=== PATIENT | female | born 1980 | race Caucasian/White ===

== ENCOUNTER → 2017-10-21 | Outpatient (REF) | payer BC ==
[~2017-10-21] MED LIST: ACET50TA PO; COLA100C5 PO; FISH500C PO; IBUP60TA PO; PREN1TAB11 PO; WELL75TA PO
[2017-10-21 15:48] LABS: PERCENT SATURATION 14.2 % (13.2-45.0)
== END ==
LOC: M LAB REF 14:41
PROVIDERS: ATTEND Internal Medicine
DX: D64.9 Anemia, unspecified (principal)

== ENCOUNTER → 2018-10-30 | Outpatient (REF) | payer BC ==
[~2018-10-30] MED LIST changes: -ACET50TA PO; +MAPA500T2 PO
[2018-10-30 17:12] LABS: PERCENT SATURATION 18.3 % (13.2-45.0)
== END ==
LOC: M LAB REF 15:58
PROVIDERS: ATTEND Internal Medicine
DX: D64.9 Anemia, unspecified (principal)

== ENCOUNTER → 2020-11-16 | Outpatient (REF) | payer OTHER ==
[~2020-11-16] MED LIST changes: +IBUP600T42 PO; -IBUP60TA PO
== END ==
LOC: M LAB REF 12:18
PROVIDERS: ATTEND Internal Medicine
DX: D64.9 Anemia, unspecified (principal)

== ENCOUNTER → 2021-11-20 | Outpatient (REF) | payer OTHER ==
[2021-11-20 13:04] LABS: PERCENT SATURATION 23.7 % (13.2-45.0)
== END ==
LOC: M LAB REF 12:14
PROVIDERS: ATTEND Internal Medicine
DX: D64.9 Anemia, unspecified (principal)

== ENCOUNTER → 2022-03-20 | Outpatient (REF) | payer OTHER ==
[~2022-03-20] MED LIST changes: +BUPR1TAB52; +CEPH500C PO; +ONDA4TAB6 PO; +TRI-TAB2
== END ==
LOC: M LAB REF 21:13
PROVIDERS: ATTEND Physician Assistant
DX: R50.9 Fever, unspecified (principal); R53.83 Other fatigue

== ENCOUNTER 2022-03-21 17:49 | Emergency (ER) | payer OTHER ==
[~2022-03-21] VITALS: Ht 162.6 cm; Wt 47.7 kg
[2022-03-21 17:49] VITALS: BP 120/70
[~2022-03-21 17:49] MED LIST changes: -BUPR1TAB52; -CEPH500C PO; -ONDA4TAB6 PO; -TRI-TAB2
[2022-03-21] MEDS ORDERED: TRI-TAB2 (18:03)
[2022-03-21] MEDS ORDERED: BUPR1TAB52 (18:03)
[2022-03-21] MEDS ORDERED: NS 1,000 ML IV ONE (18:30)
[2022-03-21] MEDS ORDERED: ACETAMINOPHEN 500 MG TAB PO ONE (18:30)
[2022-03-21] MEDS ORDERED: ONDANSETRON 4MG/2ML VIAL IV ONE (18:30)
[2022-03-21 19:31] LABS: HEMATOCRIT 39.8 % (36.0-47.0); HEMOGLOBIN 13.4 g/dl (12.0-15.5); MEAN CORPUSCULAR HEMOGLOBIN 30.1 pg (27.0-33.0); MEAN CORPUSCULAR HGB CONC 33.7 g/dl (32.0-36.5); MEAN CORPUSCULAR VOLUME 89.4 fl (80.0-96.0); RED BLOOD COUNT 4.45 10^6/uL (4.00-5.40); WHITE BLOOD COUNT 2.8 10^3/uL (4.0-10.0)
[2022-03-21 19:45] LABS: INR 1.09; PROTHROMBIN TIME 14.5 SECONDS (12.7-14.5)
[2022-03-21 19:46] LABS: PARTIAL THROMBOPLASTIN TIME 37.5 SECONDS (25.9-37.0)
[2022-03-21 19:48] LABS: ALBUMIN 2.8 GM/DL (3.2-5.2); ALT/SGPT 21 U/L (12-78); BILIRUBIN,TOTAL 0.8 MG/DL (0.2-1.0); BLOOD UREA NITROGEN 18 MG/DL (7-18); CALCIUM LEVEL 8.4 MG/DL (8.5-10.1); CARBON DIOXIDE LEVEL 25 MEQ/L (21-32); CHLORIDE LEVEL 105 MEQ/L (98-107); CREATININE FOR GFR 1.35 MG/DL (0.55-1.30); GLOMERULAR FILTRATION RATE 46.2 (>58); GLUCOSE, FASTING 118 MG/DL (70-100); POTASSIUM SERUM 4.2 MEQ/L (3.5-5.1); SODIUM LEVEL 138 MEQ/L (136-145); TOTAL PROTEIN 6.8 GM/DL (6.4-8.2)
[2022-03-21 20:05] LABS: D-DIMER QUANT > 4000 ng/ml (<500)
[2022-03-21] MEDS ORDERED: ISOVUE-370 76% 100ML VIAL As Ordered ONE (20:11)
[2022-03-21 20:14] LABS: PLATELET COUNT, AUTOMATED 59 10^3/uL (150-450)
[2022-03-21 20:19] LABS: ATYPICAL LYMPH 9 % (0-5); BASOPHILS 1 % (0-1); LYMPHOCYTES 5 % (16-44); METAMYELOCYTES 1 % (0-0); MONOCYTES 2 % (0-5); NEUTROPHILS 51 % (28-66); PLATELET ESTIMATE DECREASED (NORMAL)
[2022-03-21 21:27] LABS: MONO SCRN NEGATIVE (NEGATIVE)
[2022-03-21 22:11] LABS: HEPATITIS C VIRUS ABY INDEX 0.1 INDEX (<0.8)
[2022-03-21 22:12] LABS: HEPATITIS B CORE ANTIBODY IGM NEGATIVE (NEGATIVE)
[2022-03-21 22:34] LABS: LDH LACTATE DEHYDROGENASE 302 U/L (84-246)
[2022-03-21 22:49] LABS: HEPATITIS B SURFACE ANTIGEN NEGATIVE (NEGATIVE)
[2022-03-21] MEDS ORDERED: CEPH500C PO (22:55)
[2022-03-21] MEDS ORDERED: CEPHALEXIN 500 MG CAP PO ONE (22:55)
[2022-03-21] MEDS ORDERED: ONDA4TAB6 PO (22:56)
[2022-03-21 23:18] LABS: HIV 1&2 SCREEN CENTAUR NEGATIVE (NEGATIVE)
[2022-03-23 20:07] LABS: ANTINUCLEAR ANTIBODIES DIRECT Negative (Negative)
== END 2022-03-21 23:07 | disposition home or self-care (01) ==
LOC: M ED 17:49
DX: N39.0 Urinary tract infection, site not specified (principal); B34.8 Other viral infections of unspecified site; F33.9 Major depressive disorder, recurrent, unspecified; Z79.899 Other long term (current) drug therapy; Z79.3 Long term (current) use of hormonal contraceptives
CPT/HCPCS: 71046; 71275; 80053; 80503; 81001; 83605; 83615; 85025; 85049; 85055; 85379; 85610; 85730; 86038; 86308; 86618; 86705; 86709; 86803; 87040; 87088; 87186; 87340; 87389; 87486; 87581; 87633; 87798; 93005; 96361; 96374; 99284; J2405; Q9967

== ENCOUNTER → 2022-04-12 | Outpatient (REF) | payer OTHER ==
[~2022-04-12] MED LIST changes: +BUPR1TAB52; +CEPH500C PO; +ONDA4TAB6 PO; +TRI-TAB2
== END ==
LOC: M LAB REF 16:23
PROVIDERS: ATTEND Internal Medicine
DX: R50.9 Fever, unspecified (principal); B34.9 Viral infection, unspecified; R53.83 Other fatigue

== ENCOUNTER → 2022-08-25 | Outpatient (CLI) | payer OTHER | LOC: M LABSMTC 10:26 | PROVIDERS: ATTEND Anesthesiology | DX: Z01.818 Encounter for other preprocedural examination (principal); Z11.52 Encounter for screening for COVID-19 ==

== ENCOUNTER 2022-08-29 08:20 | Day surgery (SDC) | payer OTHER ==
[~2022-08-29] VITALS: Ht 162.6 cm; Wt 56.2 kg
[~2022-08-29 08:20] MED LIST changes: +NS 1,000 ML IV ONE
[2022-08-29] MEDS ORDERED: LIDOCAINE 2% 100MG/5ML SDV (FOR ANES.) As Ordered ONE (09:28)
[2022-08-29] MEDS ORDERED: propofoL 200 MG/20 ML VIAL As Ordered ONE (09:28)
[2022-08-29 10:03] VITALS: BP 98/56
== END 2022-08-29 10:19 | disposition home or self-care (01) ==
LOC: M OPP 08:20
PROVIDERS: ATTEND Surgery
DX: Z12.11 Encounter for screening for malignant neoplasm of colon (principal); Z80.0 Family history of malignant neoplasm of digestive organs; Z79.3 Long term (current) use of hormonal contraceptives; Z79.899 Other long term (current) drug therapy; Z88.1 Allergy status to other antibiotic agents; F32.9 Major depressive disorder, single episode, unspecified; F41.9 Anxiety disorder, unspecified

== ENCOUNTER → 2023-06-11 | Outpatient (CLI) | payer OTHER ==
[~2023-06-11] MED LIST changes: -NS 1,000 ML IV ONE
[2023-06-11 15:54] LABS: HEMATOCRIT 41.9 % (36.0-47.0); HEMOGLOBIN 13.5 g/dl (12.0-15.5); MEAN CORPUSCULAR HEMOGLOBIN 29.3 pg (27.0-33.0); MEAN CORPUSCULAR HGB CONC 32.2 g/dl (32.0-36.5); MEAN CORPUSCULAR VOLUME 91.1 fl (80.0-96.0); PLATELET COUNT, AUTOMATED 188 10^3/uL (150-450); WHITE BLOOD COUNT 7.4 10^3/uL (4.0-10.0)
[2023-06-11 16:28] LABS: ALBUMIN 3.4 G/DL (3.2-5.2); ALKALINE PHOSPHATASE 36 U/L (46-116); ALT/SGPT 13 U/L (7.0-40); AST/SGOT 9 U/L (<34); BILIRUBIN,TOTAL 0.5 MG/DL (0.3-1.2); BLOOD UREA NITROGEN 14 MG/DL (9-23); CALCIUM LEVEL 9.1 MG/DL (8.5-10.1); CARBON DIOXIDE LEVEL 28 MMOL/L (20-31); CHLORIDE LEVEL 105 MMOL/L (98-107); CREATININE FOR GFR 1.05 MG/DL (0.55-1.30); GLOMERULAR FILTRATION RATE > 60.0 (>58); GLUCOSE, FASTING 84 MG/DL (60-100); POTASSIUM SERUM 4.2 MMOL/L (3.5-5.1); SODIUM LEVEL 141 MMOL/L (136-145); TOTAL PROTEIN 6.9 G/DL (5.7-8.2)
[2023-06-11 16:29] LABS: THYROID STIMULATING HORMONE 1.341 uIU/ML (0.55-4.78)
[2023-06-11 16:30] LABS: FREE T4 0.94 NG/DL (0.89-1.76)
[2023-06-13 12:09] LABS: ANTINUCLEAR ANTIBODIES DIRECT Negative (Negative)
== END ==
LOC: M LAB 15:25
PROVIDERS: ATTEND Physician Assistant
DX: L65.0 Telogen effluvium (principal)

== ENCOUNTER → 2023-06-11 | Outpatient (REF) | payer OTHER | LOC: CANPREREF → M SFHCDERM 15:44 | PROVIDERS: ATTEND Physician Assistant | DX: Z53.9 Procedure and treatment not carried out, unspecified reason (principal) ==

== ENCOUNTER → 2023-08-06 | Outpatient (CLI) | payer OTHER, SELFPAY | LOC: M LAB 09:48 | PROVIDERS: ATTEND Physician Assistant | DX: L65.0 Telogen effluvium (principal) ==

== ENCOUNTER → 2024-01-02 | Outpatient (REF) | payer OTHER ==
[2024-01-02 17:57] LABS: PERCENT SATURATION 20.4 % (13.2-45.0)
[2024-01-02 18:01] LABS: FERRITIN 13.2 NG/ML (7.3-270.7)
== END ==
LOC: M LAB REF 17:02
PROVIDERS: ATTEND Internal Medicine
DX: L65.9 Nonscarring hair loss, unspecified (principal); D50.9 Iron deficiency anemia, unspecified

== ENCOUNTER → 2024-09-09 | Outpatient (REF) | payer OTHER ==
[~2024-09-09] MED LIST changes: +ONDA-282 PO; -ONDA4TAB6 PO
[2024-09-09 17:29] LABS: HEMATOCRIT 37.4 % (36.0-47.0); HEMOGLOBIN 12.4 g/dl (12.0-15.5); MEAN CORPUSCULAR HGB CONC 33.2 g/dl (32.0-36.5); MEAN CORPUSCULAR VOLUME 90.6 fl (80.0-96.0); PLATELET COUNT, AUTOMATED 276 10^3/uL (150-450); RED BLOOD COUNT 4.13 10^6/uL (4.00-5.40)
[2024-09-09 17:42] LABS: HEPATITIS B SURFACE ANTIGEN NEGATIVE (NEGATIVE)
[2024-09-09 17:54] LABS: HIV 1&2 SCREEN NEGATIVE (NEGATIVE)
[2024-09-09 18:03] LABS: HEPATITIS C VIRUS ABY INDEX < 0.02 INDEX (<0.8)
[2024-09-09 18:06] LABS: HCG, SERUM QUANTITATIVE 23166.6 MIU/ML (<4.2)
[2024-09-10 07:43] LABS: WHITE BLOOD COUNT 7.5 10^3/uL (4.0-10.0)
== END ==
LOC: M LAB REF 16:23
PROVIDERS: ATTEND Obstetrics & Gynecology
DX: O36.80X0 Pregnancy with inconclusive fetal viability, not applicable or unspecified (principal); Z32.01 Encounter for pregnancy test, result positive; Z3A.00 Weeks of gestation of pregnancy not specified

== ENCOUNTER → 2024-11-29 | Outpatient (CLI) | payer OTHER ==
[2024-11-29 15:38] LABS: HEMATOCRIT 33.2 % (36.0-47.0); HEMOGLOBIN 10.7 g/dl (12.0-15.5); MEAN CORPUSCULAR HEMOGLOBIN 29.3 pg (27.0-33.0); MEAN CORPUSCULAR HGB CONC 32.2 g/dl (32.0-36.5); PLATELET COUNT, AUTOMATED 258 10^3/uL (150-450); RED BLOOD COUNT 3.65 10^6/uL (4.00-5.40); WHITE BLOOD COUNT 7.4 10^3/uL (4.0-10.0)
== END ==
LOC: M WUC 09:46
PROVIDERS: ATTEND Obstetrics & Gynecology
DX: Z34.82 Encounter for supervision of other normal pregnancy, second trimester (principal)

== ENCOUNTER → 2024-12-22 | Outpatient (REF) | payer OTHER ==
[2024-12-22 16:58] LABS: BASO % 0.2 % (0.0-1.0); EOS # 0.1 10^3/uL (0.0-0.5); EOS % 0.7 % (0.0-3.0); HEMATOCRIT 32.8 % (36.0-47.0); HEMOGLOBIN 10.8 g/dl (12.0-15.5); LYMPH # 1.5 10^3/uL (1.5-5.0); LYMPH % 15.2 % (24.0-44.0); MEAN CORPUSCULAR HEMOGLOBIN 29.6 pg (27.0-33.0); MEAN CORPUSCULAR HGB CONC 32.9 g/dl (32.0-36.5); MEAN CORPUSCULAR VOLUME 89.9 fl (80.0-96.0); MONO # 0.7 10^3/uL (0.0-0.8); MONO % 7.3 % (2.0-8.0); NEUTROPHILS # 7.3 10^3/uL (1.5-8.5); NEUTROPHILS % 75.9 % (36.0-66.0); PLATELET COUNT, AUTOMATED 288 10^3/uL (150-450); RED BLOOD COUNT 3.65 10^6/uL (4.00-5.40)
[2024-12-22 17:16] LABS: TOTAL PROTEIN,RANDOM URINE 8.8 MG/DL (0.0-14.0)
[2024-12-22 17:17] LABS: URIC ACID 4.2 MG/DL (3.1-7.8)
[2024-12-22 17:20] LABS: LDH LACTATE DEHYDROGENASE 178 U/L (120-246)
[2024-12-22 17:21] LABS: ALT/SGPT 19 U/L (7.0-40); AST/SGOT 17 U/L (<34); BILIRUBIN,TOTAL 0.3 MG/DL (0.3-1.2); CREATININE FOR GFR 0.65 MG/DL (0.55-1.30); CREATININE,RANDOM URINE 35.2 MG/DL; GLOMERULAR FILTRATION RATE > 60.0 (>58)
[2024-12-23 07:07] LABS: WHITE BLOOD COUNT 9.7 10^3/uL (4.0-10.0)
== END ==
LOC: M LAB REF 16:11
PROVIDERS: ATTEND Obstetrics & Gynecology
DX: O14.93 Unspecified pre-eclampsia, third trimester (principal)

== ENCOUNTER → 2025-01-26 | Outpatient (REF) | payer OTHER ==
[~2025-01-26] MED LIST changes: +FOLI400T13 PO; +PRENTAB9 PO; +WELL100T2 PO
[2025-01-26 17:12] LABS: BASO % 0.2 % (0.0-1.0); EOS % 0.5 % (0.0-3.0); HEMATOCRIT 29.7 % (36.0-47.0); HEMOGLOBIN 9.9 g/dl (12.0-15.5); LYMPH # 1.7 10^3/uL (1.5-5.0); MEAN CORPUSCULAR HGB CONC 33.3 g/dl (32.0-36.5); MEAN CORPUSCULAR VOLUME 87.1 fl (80.0-96.0); MONO # 0.7 10^3/uL (0.0-0.8); MONO % 10.7 % (2.0-8.0); NEUTROPHILS # 4.2 10^3/uL (1.5-8.5); NEUTROPHILS % 63.1 % (36.0-66.0); PLATELET COUNT, AUTOMATED 271 10^3/uL (150-450); RED BLOOD COUNT 3.41 10^6/uL (4.00-5.40); WHITE BLOOD COUNT 6.6 10^3/uL (4.0-10.0)
[2025-01-26 17:15] LABS: LDH LACTATE DEHYDROGENASE 167 U/L (120-246)
[2025-01-26 17:16] LABS: ALT/SGPT 16 U/L (7.0-40); AST/SGOT 16 U/L (<34); BILIRUBIN,TOTAL 0.3 MG/DL (0.3-1.2); CREATININE FOR GFR 0.74 MG/DL (0.55-1.30); GLOMERULAR FILTRATION RATE > 60.0 (>58)
[2025-01-26 17:35] LABS: URIC ACID 5.2 MG/DL (3.1-7.8)
[2025-01-26 17:40] LABS: TOTAL PROTEIN,RANDOM URINE 32.8 MG/DL (0.0-14.0)
[2025-01-26 17:44] LABS: CREATININE,RANDOM URINE 82.2 MG/DL
== END ==
LOC: M LAB REF 16:49
PROVIDERS: ATTEND Obstetrics & Gynecology
DX: O14.93 Unspecified pre-eclampsia, third trimester (principal); Z3A.00 Weeks of gestation of pregnancy not specified

== ENCOUNTER 2025-01-27 11:53 | Outpatient (CLI) | payer OTHER ==
[~2025-01-27] VITALS: Ht 162.6 cm; Wt 70.5 kg
[~2025-01-27 11:53] MED LIST changes: -FOLI400T13 PO; -PRENTAB9 PO; -WELL100T2 PO
[2025-01-27] MEDS ORDERED: PRENTAB9 PO (12:09)
[2025-01-27] MEDS ORDERED: FOLI400T13 PO (12:09)
[2025-01-27] MEDS ORDERED: WELL100T2 PO (12:10)
[2025-01-27 12:12] VITALS: BP 132/90
[2025-01-27 12:27] VITALS: BP 131/92
[2025-01-27 12:52] LABS: HEMATOCRIT 28.6 % (36.0-47.0); HEMOGLOBIN 9.6 g/dl (12.0-15.5); MEAN CORPUSCULAR HEMOGLOBIN 28.8 pg (27.0-33.0); MEAN CORPUSCULAR HGB CONC 33.6 g/dl (32.0-36.5); MEAN CORPUSCULAR VOLUME 85.9 fl (80.0-96.0); PLATELET COUNT, AUTOMATED 250 10^3/uL (150-450); RED BLOOD COUNT 3.33 10^6/uL (4.00-5.40)
[2025-01-27 13:20] LABS: URIC ACID 4.8 MG/DL (3.1-7.8)
[2025-01-27 13:21] LABS: CREATININE,RANDOM URINE 17.6 MG/DL
[2025-01-27 13:22] LABS: LDH LACTATE DEHYDROGENASE 162 U/L (120-246)
[2025-01-27 13:25] LABS: ALBUMIN 2.5 G/DL (3.2-5.2); ALKALINE PHOSPHATASE 96 U/L (35-104); ALT/SGPT 15 U/L (7.0-40); AST/SGOT 18 U/L (<34); BILIRUBIN,TOTAL 0.3 MG/DL (0.3-1.2); BLOOD UREA NITROGEN 11 MG/DL (9-23); CALCIUM LEVEL 8.4 MG/DL (8.5-10.1); CARBON DIOXIDE LEVEL 24 MMOL/L (20-31); CHLORIDE LEVEL 107 MMOL/L (98-107); CREATININE FOR GFR 0.67 MG/DL (0.55-1.30); GLOMERULAR FILTRATION RATE > 60.0 (>58); GLUCOSE, FASTING 62 MG/DL (60-100); SODIUM LEVEL 139 MMOL/L (136-145); TOTAL PROTEIN 6.1 G/DL (5.7-8.2)
== END 2025-01-27 14:47 | disposition home or self-care (01) ==
LOC: M LDO 11:53
PROVIDERS: ATTEND Obstetrics & Gynecology
DX: O14.03 Mild to moderate pre-eclampsia, third trimester (principal); O09.523 Supervision of elderly multigravida, third trimester; Z3A.35 35 weeks gestation of pregnancy
CPT/HCPCS: 36415; 59025; 76811; 76820; 80053; 82570; 83615; 84156; 84550; 85027; G0463

== ENCOUNTER 2025-01-31 19:39 | Outpatient (CLI) | payer OTHER ==
[~2025-01-31] VITALS: Ht 162.6 cm; Wt 70.7 kg
[~2025-01-31 19:39] MED LIST changes: +FOLI400T13 PO; +PRENTAB9 PO; +WELL100T2 PO
[2025-01-31] MEDS ORDERED: ACET-907 PO (19:51)
[2025-01-31 19:57] VITALS: BP 119/80
[2025-01-31 20:14] VITALS: BP 133/78
[2025-01-31] MEDS: ACETAMINOPHEN 500 MG TAB PO ONE (20:30)
[2025-01-31 21:07] VITALS: BP 121/73
[2025-01-31 22:14] VITALS: BP 128/81
[2025-01-31] MEDS: diphenhydrAMINE 50MG CAP PO ONE (22:33)
[2025-01-31] MEDS: METOCLOPRAMIDE 10MG TAB PO ONE (22:34)
[2025-01-31 23:07] VITALS: BP 107/66
[2025-01-31 23:43] VITALS: BP 132/76
== END 2025-02-01 00:05 | disposition home or self-care (01) ==
LOC: M LDO 19:39
PROVIDERS: ATTEND Advanced Practice Midwife
DX: O14.03 Mild to moderate pre-eclampsia, third trimester (principal); O09.523 Supervision of elderly multigravida, third trimester; Z3A.36 36 weeks gestation of pregnancy
CPT/HCPCS: 59025; G0463

== ENCOUNTER 2025-02-03 20:42 | Outpatient (CLI) | payer OTHER ==
[~2025-02-03] VITALS: Ht 162.6 cm; Wt 70.5 kg
[~2025-02-03 20:42] MED LIST changes: +ACET-907 PO
[2025-02-03 21:03] VITALS: BP 132/80
[2025-02-03] MEDS ORDERED: HOME MED LIST COMPLETE! XX SCH (21:25)
[2025-02-03 22:09] LABS: CREATININE,RANDOM URINE 75.4 MG/DL
[2025-02-03 22:23] VITALS: BP 144/87
[2025-02-03 22:31] LABS: HEMATOCRIT 28.6 % (36.0-47.0); HEMOGLOBIN 9.3 g/dl (12.0-15.5); MEAN CORPUSCULAR HEMOGLOBIN 28.2 pg (27.0-33.0); MEAN CORPUSCULAR HGB CONC 32.5 g/dl (32.0-36.5); MEAN CORPUSCULAR VOLUME 86.7 fl (80.0-96.0); PLATELET COUNT, AUTOMATED 252 10^3/uL (150-450); WHITE BLOOD COUNT 7.1 10^3/uL (4.0-10.0)
[2025-02-03 22:39] VITALS: BP 135/84
[2025-02-03 23:00] LABS: URIC ACID 5.2 MG/DL (3.1-7.8)
[2025-02-03 23:02] LABS: LDH LACTATE DEHYDROGENASE 153 U/L (120-246)
[2025-02-03 23:03] LABS: ALT/SGPT 14 U/L (7.0-40); AST/SGOT 17 U/L (<34); BILIRUBIN,TOTAL 0.3 MG/DL (0.3-1.2); CREATININE FOR GFR 0.72 MG/DL (0.55-1.30); GLOMERULAR FILTRATION RATE > 60.0 (>58)
== END 2025-02-03 23:12 | disposition home or self-care (01) ==
LOC: M LDO 20:42
PROVIDERS: ATTEND Advanced Practice Midwife
DX: O26.853 Spotting complicating pregnancy, third trimester (principal); O14.03 Mild to moderate pre-eclampsia, third trimester; O09.523 Supervision of elderly multigravida, third trimester; R10.817 Generalized abdominal tenderness; Z3A.36 36 weeks gestation of pregnancy
CPT/HCPCS: 36415; 59025; 82247; 82570; 83615; 84156; 84450; 84460; 84550; 85027; G0463

== ENCOUNTER 2025-02-07 10:41 | Inpatient (IN) | payer OTHER ==
[2025-02-07] VITALS (14 sets, daily range): BP systolic 124–160; BP diastolic 76–93; O2SAT 98–100
[~2025-02-07] VITALS: Ht 162.6 cm; Wt 70.0 kg
[~2025-02-07 10:41] MED LIST changes: +**PENDING PCN ENTRY XX SCH
[2025-02-07] MEDS ORDERED: TUMS500C PO (11:27)
[2025-02-07] MEDS ORDERED: ACET-907 PO (11:27)
[2025-02-07] MEDS ORDERED: FOLI1TAB11 PO (11:27)
[2025-02-07] MEDS ORDERED: HOME MED LIST COMPLETE! XX SCH (11:30)
[2025-02-07] MEDS ORDERED: CARBOPROST TROMETHAMINE 250 MCG/ML AMP IM PRN (11:40)
[2025-02-07] MEDS ORDERED: OXYTOCIN INJ 10UNITS/ML 1ML VIAL IM PRN (11:40)
[2025-02-07] MEDS ORDERED: LIDOCAINE 1% MDV 20ML VIAL INFIL PRN (11:40)
[2025-02-07] MEDS ORDERED: PENICILLIN G POTASSIUM 5 MU IV 5 MU in DEXTROSE 5% (D5W) MINI-BAG PLU 100 ML IV STA (11:40)
[2025-02-07] MEDS ORDERED: TRANEXAMIC ACID INJection 1,000 MG in NS 100 ML IV PRN (11:40)
[2025-02-07] MEDS: LACTATED RINGER'S 1000 ML IV STA (11:40)
[2025-02-07] MEDS ORDERED: OXYTOCIN DRIP 30 UNITS in IV 1 EA IV PRN (11:40)
[2025-02-07 12:23] LABS: HEMATOCRIT 31.9 % (36.0-47.0); HEMOGLOBIN 10.6 g/dl (12.0-15.5); MEAN CORPUSCULAR HEMOGLOBIN 28.3 pg (27.0-33.0); MEAN CORPUSCULAR HGB CONC 33.2 g/dl (32.0-36.5); MEAN CORPUSCULAR VOLUME 85.1 fl (80.0-96.0); PLATELET COUNT, AUTOMATED 280 10^3/uL (150-450); RED BLOOD COUNT 3.75 10^6/uL (4.00-5.40); WHITE BLOOD COUNT 5.6 10^3/uL (4.0-10.0)
[2025-02-07 12:30] LABS: LDH LACTATE DEHYDROGENASE 179 U/L (120-246)
[2025-02-07 12:31] LABS: ALT/SGPT 15 U/L (7.0-40); AST/SGOT 22 U/L (<34); BILIRUBIN,TOTAL 0.4 MG/DL (0.3-1.2); CREATININE FOR GFR 0.71 MG/DL (0.55-1.30); GLOMERULAR FILTRATION RATE > 60.0 (>58)
[2025-02-07 12:36] LABS: TOTAL PROTEIN,RANDOM URINE 21.3 MG/DL (0.0-14.0)
[2025-02-07 12:41] LABS: CREATININE,RANDOM URINE 110.1 MG/DL
[2025-02-07 13:02] LABS: HIV 1&2 SCREEN NEGATIVE (NEGATIVE)
[2025-02-07] MEDS: miSOPROStol 50MCG 1/2 TABLET PO SCH (13:04)
[2025-02-07 13:29] LABS: Trichomonas vaginalis (AMP) NOT DETECTED (NEGATIVE)
[2025-02-07 13:52] LABS: GC DNA AMPLIFICATION NEGATIVE (NEGATIVE)
[2025-02-07 14:14] LABS: HEPATITIS C VIRUS ABY INDEX 0.02 INDEX (<0.8)
[2025-02-07] MEDS ORDERED: PEN G POT 3,000,000 UNIT/50 ML 3,000,000 UNIT in IV 1 EA IV SCH (15:40)
[2025-02-07] MEDS: buPROPion (WELLBUTRIN SR) 100 MG SR TAB PO SCH (21:29)
[2025-02-07] MEDS ORDERED: LR 1,000 ML IV ONE (22:35)
[2025-02-08] VITALS (58 sets, daily range): BP systolic 103–169; BP diastolic 62–103; O2SAT 97–100
[2025-02-08] MEDS: PEN G POT 3,000,000 UNIT/50 ML 3,000,000 UNIT in IV 1 EA IV SCH (03:00)
[2025-02-08] MEDS: PENICILLIN G POTASSIUM 5 MU IV 5 MU in DEXTROSE 5% (D5W) MINI-BAG PLU 100 ML IV STA (03:03)
[2025-02-08] MEDS: LR 1,000 ML IV SCH ×2 (03:03→17:40)
[2025-02-08] MEDS: OXYTOCIN DRIP 30 UNITS in IV 1 EA IV SCH ×2 (03:03→17:40)
[2025-02-08] MEDS: ACETAMINOPHEN 500 MG TAB PO ONE (05:37)
[2025-02-08] MEDS ORDERED: FENTANYL 2MCG/ML ROPIVACAINE 0.2% IN 0.9% NACL 100ML IVBAG As Ordered ONE (07:21)
[2025-02-08] MEDS ORDERED: ONDANSETRON 4MG 2ML VIAL IV PRN ×2 (07:35→17:40)
[2025-02-08] MEDS ORDERED: ePHEDrine SULFATE 25 MG/5 ML(5MG/ML) SYRINGE IVP PRN (07:35)
[2025-02-08] MEDS ORDERED: EPIDURAL/PCA KEYS XX PRN (07:35)
[2025-02-08] MEDS ORDERED: diphenhydrAMINE 50MG/ML VIAL IV PRN (07:35)
[2025-02-08] MEDS ORDERED: NALOXONE INJ 0.4MG/1ML VIAL IV PRN (07:35)
[2025-02-08] MEDS ORDERED: LR 500 ML IV PRN (07:35)
[2025-02-08] MEDS: FENTANYL/ROPIVACAINE/NACL BAG 100 ML EPIDURAL SCH (09:50)
[2025-02-08] MEDS: ACETAMINOPHEN 500 MG TAB PO PRN (17:30)
[2025-02-08] MEDS ORDERED: ACETAMINOPHEN 325 MG TAB PO PRN (17:40)
[2025-02-08] MEDS ORDERED: RHOGAM 300MCG (1500IU) INJ IM SCH (17:40)
[2025-02-08] MEDS ORDERED: CALCIUM CARBONATE 500 MG CHEW U/D PO PRN (17:40)
[2025-02-08] MEDS ORDERED: DOCUSATE SODIUM 100MG CAPSULE PO PRN (17:40)
[2025-02-08] MEDS: IBUPROFEN 800 MG TAB PO PRN (17:54)
[2025-02-08] MEDS: DIBUCAINE 1% OINTMENT 30GM TOP PRN (20:24)
[2025-02-08] MEDS: ANUSOL HC CREAM 30GM TOP PRN (20:24)
[2025-02-09 06:00] VITALS: BP 128/73; O2SAT 97
[2025-02-09] MEDS: PRENATAL VITAMINS CHEWABLE TABLET PO SCH (08:59)
[2025-02-09] MEDS: IBUPROFEN 600MG TAB PO PRN (12:02)
[2025-02-09 18:00] VITALS: BP 141/85
[2025-02-10 06:00] VITALS: BP 120/68; O2SAT 99
[2025-02-10] MEDS ORDERED: MEASLES,MUMPS,RUBELLA VACCINE INJ (MMR-II) SC.IMMUN ONE (09:00)
== END 2025-02-10 12:43 | disposition home or self-care (01) | DRG 807 ==
LOC: M LDI 10:41 → M OBS 02-08 17:15
PROVIDERS: ADMIT Advanced Practice Midwife; ATTEND Obstetrics & Gynecology
PROC: 3E0P7GC Introduction of Other Therapeutic Substance into Female Reproductive, Via Natural or Artificial Opening (ICD-10-PCS; 2025-02-07)
PROC: 10E0XZZ Delivery of Products of Conception, External Approach (ICD-10-PCS; principal; 2025-02-08)
PROC: 0KQM0ZZ Repair Perineum Muscle, Open Approach (ICD-10-PCS; 2025-02-08)
DX: O14.94 Unspecified pre-eclampsia, complicating childbirth (principal); Z37.0 Single live birth; Z3A.37 37 weeks gestation of pregnancy; Z88.1 Allergy status to other antibiotic agents; Z79.899 Other long term (current) drug therapy; O99.824 Streptococcus B carrier state complicating childbirth; O70.1 Second degree perineal laceration during delivery